=== PATIENT | male | born 1965 | race Caucasian/White ===

== ENCOUNTER 2024-07-29 18:43 | Inpatient (IN) ==
[2024-07-29 19:30] LABS: Basophils # (Auto) 0 K/mcL (0.00-0.30); Basophils % (Auto) 0 % (0.0-2.0); Eosinophils # (Auto) 0.03 K/mcL (0.00-0.70); Eosinophils % (Auto) 0.2 % (0.0-7.0); Hematocrit 34.4 % (40.1-51.0); Hemoglobin 12.3 g/dL (13.7-17.5); Lymphocytes % (Auto) 2.1 % (15.5-49.0); Mean Cell Volume 89.1 fL (80.0-100.0); Mean Corpuscular HGB Conc 35.8 g/dL (31.0-36.0); Mean Platelet Volume 8.4 fL (8.8-12.5); Monocytes # (Auto) 0.52 K/mcL (0.10-0.90); Monocytes % (Auto) 3.6 % (1.0-12.0); Neutrophils % (Auto) 93.2 % (38.0-78.0); Platelet Count 439 K/mcL (140-440); RBC 3.86 M/mcL (4.63-6.08); Red Cell Distribution Width 12.4 % (11.5-14.5); WBC 14.5 K/mcL (4.5-11.0)
[2024-07-29] MEDS: 0.9 % SODIUM CHLORIDE 1,000 ML IV ONE (19:30)
[2024-07-29 19:50] LABS: Creatine Kinase 240 U/L (24-195)
[2024-07-29] MEDS: POTASSIUM CHLORIDE 20 MEQ, MAGNESIUM SULFATE 16.24 MEQ, THIAMINE 100 MG, MVI, ADULT NO.... IV SCH (20:00)
[2024-07-29 20:07] LABS: ALT/SGPT 54 U/L (<40); AST/SGOT 88 U/L (<40); Albumin 3.6 gm/dL (3.2-5.2); Alkaline Phosphatase 124 U/L (39-117); Bilirubin,Total 0.7 mg/dL (0.1-1.0); Blood Urea Nitrogen 22 mg/dL (6-20); Calcium 9.1 mg/dL (8.6-10.4); Carbon Dioxide 16 mmol/L (22-30); Chloride 82 mmol/L (96-108); Globulin 3.5 gm/dL (2.2-3.7); Glomerular Filtration Rate 30; Glucose 230 mg/dL (70-105); Potassium 2.4 mmol/L (3.3-5.1); Sodium 123 mmol/L (133-145)
[2024-07-29] MEDS: MAGNESIUM SULFATE 8.12 MEQ/2 ML VIAL ONE (20:07)
[2024-07-29] MEDS: POTASSIUM CHLORIDE 20 MEQ/10 ML VIAL IV ONE (20:07)
[2024-07-29] MEDS: THIAMINE 100 MG/ML VIAL ONE (20:08)
[2024-07-29] MEDS: MVI, ADULT NO.4 WITH VIT K 10 ML VIAL IV ONE (20:19)
[2024-07-29] MEDS: DIPH,PERTUSS(ACELL),TET VAC/PF 0.5 ML SYRINGE IM ONE (20:22)
[2024-07-29] MEDS: POTASSIUM CHLORIDE 20 MEQ TABLET PO ONE (20:22)
[2024-07-29] MEDS: chlordiazePOXIDE 25 MG CAPSULE PO ONE (20:22)
[2024-07-29] MEDS: LORazepam 2 MG/ML VIAL IV ONE (20:22)
[2024-07-29] MEDS: POTASSIUM CHLORIDE 20 MEQ in DEXTROSE 5% IN WATER 250 ML IV ONE (23:08)
[2024-07-30 00:59] LABS: Alcohol, Blood < 10.1 mg/dL; Alcohol,Blood < 0.010 gm/dL (<0.010)
[2024-07-30 02:54] LABS: Blood Urea Nitrogen 18 mg/dL (6-20); Calcium 8.1 mg/dL (8.6-10.4); Carbon Dioxide 22 mmol/L (22-30); Chloride 94 mmol/L (96-108); Glomerular Filtration Rate 46; Glucose 121 mg/dL (70-105); Potassium 2.7 mmol/L (3.3-5.1); Sodium 128 mmol/L (133-145)
[2024-07-30 03:12] LABS: Amphetamine Screen,Urine None detected; Barbiturate Screen,Urine None detected; Benzodiazepines Screen,Urine None detected; Cannabinoid Screen,Urine None detected; Cocaine Screen,Urine None detected; Fentanyl, Urine Screen None Detected; Opiate Screen,Urine None detected; Oxycodone, Urine Screen None detected; Phencyclidine Screen,Urine None detected
[2024-07-30] MEDS: POTASSIUM CHLORIDE 20 MEQ TABLET PO ONE (04:12)
[2024-07-30] MEDS ORDERED: SENNOSIDES 1 TABLET PO PRN (08:17)
[2024-07-30] MEDS ORDERED: METOCLOPRAMIDE 10 MG/2 ML VIAL IV PRN (08:17)
[2024-07-30] MEDS ORDERED: IPRATROPIUM/ALBUTEROL 3 ML AMPUL.NEB NEB PRN (08:17)
[2024-07-30] MEDS ORDERED: POLYETHYLENE GLYCOL 3350 17 GM PACKET PO PRN (08:17)
[2024-07-30 09:27] LABS: Free T4 (Free Thyroxine) 1.47 ng/dL (0.93-1.70); Thyroid Stimulating Hormone 2.85 uIU/mL (0.27-5.01)
[2024-07-30] MEDS: DOCUSATE SODIUM 100 MG CAPSULE PO SCH (10:06)
[2024-07-30] MEDS: chlordiazePOXIDE 25 MG CAPSULE PO PRN (10:34)
[2024-07-30] MEDS: FOLIC ACID 1 MG TABLET PO SCH (10:34)
[2024-07-30] MEDS: ENOXAPARIN 40 MG/0.4 ML SYRINGE SQ SCH (10:35)
[2024-07-30] MEDS: THIAMINE 100 MG in 0.9 % SODIUM CHLORIDE 50 ML IV SCH (10:35)
[2024-07-30] MEDS: MULTIVIT,THER IRON,CA,FA & MIN 1 TABLET PO SCH (10:35)
[2024-07-30] MEDS: DEXTROSE 5%-NS 1,000 ML IV ONE (10:35)
[2024-07-30] MEDS: GABAPENTIN 300 MG CAPSULE PO ONE (15:51)
[2024-07-30] MEDS: 0.9 % SODIUM CHLORIDE 10 ML SYRINGE IV SCH (15:53)
[2024-07-30] MEDS: GABAPENTIN 300 MG CAPSULE PO SCH (22:23)
[2024-07-31 06:49] LABS: Basophils # (Auto) 0.02 K/mcL (0.00-0.30); Basophils % (Auto) 0.2 % (0.0-2.0); Eosinophils # (Auto) 0.03 K/mcL (0.00-0.70); Eosinophils % (Auto) 0.2 % (0.0-7.0); Hematocrit 29.2 % (40.1-51.0); Hemoglobin 10.5 g/dL (13.7-17.5); Lymphocytes # (Auto) 0.56 K/mcL (1.50-4.80); Lymphocytes % (Auto) 4.4 % (15.5-49.0); Mean Platelet Volume 8.6 fL (8.8-12.5); Monocytes # (Auto) 0.89 K/mcL (0.10-0.90); Neutrophils % (Auto) 87.6 % (38.0-78.0); Platelet Count 350 K/mcL (140-440); RBC 3.28 M/mcL (4.63-6.08); Red Cell Distribution Width 12.5 % (11.5-14.5); WBC 12.8 K/mcL (4.5-11.0)
[2024-07-31 07:14] LABS: ALT/SGPT 50 U/L (<40); AST/SGOT 157 U/L (<40); Albumin 2.9 gm/dL (3.2-5.2); Alkaline Phosphatase 98 U/L (39-117); Bilirubin,Direct 0.4 mg/dL (<0.3); Bilirubin,Total 0.7 mg/dL (0.1-1.0); Blood Urea Nitrogen 12 mg/dL (6-20); Carbon Dioxide 24 mmol/L (22-30); Chloride 94 mmol/L (96-108); Globulin 2.9 gm/dL (2.2-3.7); Glomerular Filtration Rate 73; Glucose 113 mg/dL (70-105); Lactate Dehydrogenase 164 U/L (135-225); Phosphorous 2.7 mg/dL (2.5-4.5); Potassium 2.2 mmol/L (3.3-5.1); Sodium 132 mmol/L (133-145); Triglycerides 54 mg/dL (<150); Uric Acid 6.1 mg/dL (2.5-8.0)
[2024-07-31] MEDS: POTASSIUM CHLORIDE 40 MEQ in DEXTROSE 5% IN WATER 500 ML IV PRN (09:09)
[2024-07-31] MEDS: POTASSIUM CHLORIDE 20 MEQ TABLET PO PRN (09:10)
[2024-07-31 12:02] LABS: Appearance,Urine Clear (Clear); Bilirubin,Urine Negative (Negative); Color,Urine Yellow; Glucose,Urine (UA) Negative (Negative); Ketones,Urine Negative (Negative); Leukocyte Esterase,Urine Negative /uL (Negative); Nitrate,Urine Negative (Negative); PH,Urine 5.5 (5.0-9.0); Protein,Urine Negative (Negative); Urine Blood Trace-lysed ery/mcL (Negative); Urine RBC 0 /hpf (0-3); Urine Squamous Epithelial Cell 0 /hpf (0-4); Urine WBC 0 /hpf (0-4); Urobilinogen,Urine Normal
[2024-07-31] MEDS: LEVOTHYROXINE 50 MCG TABLET PO SCH (13:03)
[2024-07-31 15:17] LABS: Potassium 2.7 mmol/L (3.3-5.1)
[2024-07-31] MEDS: POTASSIUM CHLORIDE 10 MEQ/100 ML BAG IV SCH (15:59)
[2024-07-31] MEDS: POTASSIUM CHLORIDE 40 MEQ in DEXTROSE 5% IN WATER 500 ML IV ONE (17:47)
[2024-07-31] MEDS ORDERED: morphine 4 MG/ML VIAL IV PRN (21:10)
[2024-08-01 07:09] LABS: Phosphorous 2.1 mg/dL (2.5-4.5)
[2024-08-01 07:11] LABS: Basophils # (Auto) 0.03 K/mcL (0.00-0.30); Basophils % (Auto) 0.4 % (0.0-2.0); Eosinophils # (Auto) 0.07 K/mcL (0.00-0.70); Hematocrit 29.6 % (40.1-51.0); Hemoglobin 10.2 g/dL (13.7-17.5); Lymphocytes # (Auto) 0.53 K/mcL (1.50-4.80); Lymphocytes % (Auto) 7.7 % (15.5-49.0); Mean Cell Volume 92.2 fL (80.0-100.0); Mean Corpuscular HGB Conc 34.5 g/dL (31.0-36.0); Mean Platelet Volume 8.5 fL (8.8-12.5); Monocytes # (Auto) 0.59 K/mcL (0.10-0.90); Monocytes % (Auto) 8.6 % (1.0-12.0); Neutrophils % (Auto) 81.9 % (38.0-78.0); Platelet Count 343 K/mcL (140-440); RBC 3.21 M/mcL (4.63-6.08); Red Cell Distribution Width 12.6 % (11.5-14.5); WBC 6.9 K/mcL (4.5-11.0)
[2024-08-01 07:55] LABS: ALT/SGPT 50 U/L (<40); AST/SGOT 131 U/L (<40); Albumin 2.8 gm/dL (3.2-5.2); Albumin/Globulin Ratio 0.9 (1.0-2.3); Alkaline Phosphatase 116 U/L (39-117); Bilirubin,Total 0.5 mg/dL (0.1-1.0); Blood Urea Nitrogen 12 mg/dL (6-20); Calcium 8.3 mg/dL (8.6-10.4); Carbon Dioxide 26 mmol/L (22-30); Chloride 94 mmol/L (96-108); Glomerular Filtration Rate 82; Glucose 91 mg/dL (70-105); Potassium 2.9 mmol/L (3.3-5.1); Sodium 129 mmol/L (133-145)
[2024-08-01] MEDS: POTASSIUM CHLORIDE 20 MEQ TABLET PO SCH (08:09)
[2024-08-01] MEDS: POTASSIUM PHOSPHATE 20 MEQ in DEXTROSE 5% IN WATER 250 ML IV ONE (11:44)
[2024-08-01] MEDS: SODIUM CHLORIDE 1 GM TABLET PO SCH (16:23)
[2024-08-01] MEDS: GABAPENTIN 300 MG CAPSULE PO SCH (16:23)
[2024-08-02 07:19] LABS: Phosphorous 2.7 mg/dL (2.5-4.5)
[2024-08-02 07:43] LABS: ALT/SGPT 58 U/L (<40); AST/SGOT 137 U/L (<40); Albumin 2.6 gm/dL (3.2-5.2); Albumin/Globulin Ratio 0.9 (1.0-2.3); Alkaline Phosphatase 157 U/L (39-117); Bilirubin,Total 0.4 mg/dL (0.1-1.0); Blood Urea Nitrogen 9 mg/dL (6-20); Carbon Dioxide 23 mmol/L (22-30); Chloride 95 mmol/L (96-108); Globulin 2.9 gm/dL (2.2-3.7); Glomerular Filtration Rate 93; Glucose 96 mg/dL (70-105); Potassium 3.6 mmol/L (3.3-5.1); Sodium 129 mmol/L (133-145)
[2024-08-02] MEDS: PANTOPRAZOLE 40 MG PACKET PO SCH (08:28)
[2024-08-02] MEDS: MAGNESIUM SULFATE 2 GM/50 ML BAG IV PRN (08:28)
[2024-08-02] MEDS: MAGNESIUM SULFATE 8.12 MEQ/2 ML VIAL IV ONE (10:55)
[2024-08-02] MEDS ORDERED: MAGNESIUM SULFATE 1 GM/100 ML BAG IV SCH (11:00)
[2024-08-03 06:53] LABS: Phosphorous 2.9 mg/dL (2.5-4.5)
[2024-08-03 06:56] LABS: ALT/SGPT 61 U/L (<40); AST/SGOT 115 U/L (<40); Albumin 2.9 gm/dL (3.2-5.2); Albumin/Globulin Ratio 0.9 (1.0-2.3); Alkaline Phosphatase 154 U/L (39-117); Bilirubin,Total 0.4 mg/dL (0.1-1.0); Blood Urea Nitrogen 7 mg/dL (6-20); Calcium 8.4 mg/dL (8.6-10.4); Carbon Dioxide 23 mmol/L (22-30); Chloride 98 mmol/L (96-108); Globulin 3.2 gm/dL (2.2-3.7); Glomerular Filtration Rate 93; Glucose 91 mg/dL (70-105); Potassium 4.4 mmol/L (3.3-5.1); Sodium 130 mmol/L (133-145)
[2024-08-03] MEDS: ONDANSETRON 4 MG/2 ML VIAL IV PRN (09:38)
[2024-08-03] MEDS: DIAZEPAM 10 MG/2 ML SYRINGE IV PRN (09:45)
[2024-08-03] MEDS: MAGNESIUM OXIDE 400 MG TABLET PO SCH (10:19)
[2024-08-03] MEDS: LOSARTAN 50 MG TABLET PO SCH (11:29)
[2024-08-03] MEDS: DEXMEDETOMIDINE 400 MCG in PREMIX 1 BAG IV SCH (11:51)
[2024-08-03] MEDS: 0.9 % SODIUM CHLORIDE 250 ML IV SCH (11:52)
[2024-08-03] MEDS: amLODIPine 10 MG TABLET PO SCH (11:54)
[2024-08-03] MEDS: DEXTROSE 5%-1/2NS 1,000 ML IV SCH (11:54)
[2024-08-03] MEDS: DEXMEDETOMIDINE 100 ML IV ONE (11:55)
[2024-08-03] MEDS ORDERED: METOCLOPRAMIDE 10 MG/2 ML VIAL IV SCH (15:15)
[2024-08-03] MEDS: POTASSIUM CHLORIDE 20 MEQ/15 ML ML PO SCH (16:49)
[2024-08-03] MEDS ORDERED: SIMETHICONE 80 MG TAB.CHEW CHEWED SCH (18:00)
[2024-08-03] MEDS: PYRIDOSTIGMINE BROMIDE 10 MG/2 ML AMPUL IV SCH (18:12)
[2024-08-03] MEDS: DIAZEPAM 10 MG/2 ML SYRINGE IV ONE (19:32)
[2024-08-03] MEDS: DIAZEPAM 10 MG/2 ML SYRINGE ONE (20:04)
[2024-08-03] MEDS: cefTRIAXone 1 GM VIAL IV SCH (21:09)
[2024-08-03] MEDS: AZITHROMYCIN 500 MG in 0.9 % SODIUM CHLORIDE 250 ML IV SCH (22:20)
[2024-08-04 07:13] LABS: Phosphorous 3.9 mg/dL (2.5-4.5)
[2024-08-04 07:15] LABS: ALT/SGPT 44 U/L (<40); AST/SGOT 72 U/L (<40); Albumin 2.7 gm/dL (3.2-5.2); Albumin/Globulin Ratio 0.9 (1.0-2.3); Alkaline Phosphatase 147 U/L (39-117); Bilirubin,Total 0.5 mg/dL (0.1-1.0); Blood Urea Nitrogen 9 mg/dL (6-20); Carbon Dioxide 23 mmol/L (22-30); Chloride 99 mmol/L (96-108); Globulin 2.9 gm/dL (2.2-3.7); Glomerular Filtration Rate 97; Glucose 143 mg/dL (70-105); Potassium 4.1 mmol/L (3.3-5.1); Sodium 131 mmol/L (133-145)
[2024-08-04] MEDS: DEXMEDETOMIDINE 100 ML IV ONE (09:54)
[2024-08-05] MEDS: DIAZEPAM 10 MG/2 ML SYRINGE IV PRN (10:04)
[2024-08-05 12:14] LABS: Phosphorous 3.1 mg/dL (2.5-4.5)
[2024-08-05 12:15] LABS: ALT/SGPT 44 U/L (<40); AST/SGOT 66 U/L (<40); Albumin 2.9 gm/dL (3.2-5.2); Alkaline Phosphatase 105 U/L (39-117); Bilirubin,Total 0.3 mg/dL (0.1-1.0); Blood Urea Nitrogen 5 mg/dL (6-20); Carbon Dioxide 22 mmol/L (22-30); Chloride 102 mmol/L (96-108); Globulin 2.9 gm/dL (2.2-3.7); Glomerular Filtration Rate 97; Glucose 97 mg/dL (70-105); Potassium 3.6 mmol/L (3.3-5.1); Sodium 135 mmol/L (133-145)
[2024-08-05] MEDS: chlordiazePOXIDE 5 MG CAPSULE PO PRN (14:41)
[2024-08-06 07:32] LABS: Phosphorous 3.9 mg/dL (2.5-4.5)
[2024-08-06 07:33] LABS: ALT/SGPT 47 U/L (<40); AST/SGOT 78 U/L (<40); Albumin/Globulin Ratio 0.9 (1.0-2.3); Alkaline Phosphatase 111 U/L (39-117); Bilirubin,Total 0.4 mg/dL (0.1-1.0); Blood Urea Nitrogen 4 mg/dL (6-20); Calcium 8.3 mg/dL (8.6-10.4); Carbon Dioxide 21 mmol/L (22-30); Chloride 101 mmol/L (96-108); Globulin 3.2 gm/dL (2.2-3.7); Glomerular Filtration Rate 97; Glucose 84 mg/dL (70-105); Potassium 4.3 mmol/L (3.3-5.1); Sodium 133 mmol/L (133-145)
[2024-08-06] MEDS: ACETAMINOPHEN 325 MG TABLET PO PRN (13:33)
[2024-08-06] MEDS: oxyCODONE IR 5 MG TABLET PO PRN (16:47)
[2024-08-07 05:53] LABS: ALT/SGPT 251 U/L (<40); AST/SGOT 324 U/L (<40); Albumin 3.4 gm/dL (3.2-5.2); Albumin/Globulin Ratio 1.6 (1.0-2.3); Alkaline Phosphatase 71 U/L (39-117); Bilirubin,Direct 0.3 mg/dL (<0.3); Bilirubin,Total 0.5 mg/dL (0.1-1.0); Blood Urea Nitrogen 12 mg/dL (6-20); Calcium 8.2 mg/dL (8.6-10.4); Carbon Dioxide 28 mmol/L (22-30); Chloride 100 mmol/L (96-108); Globulin 2.1 gm/dL (2.2-3.7); Glomerular Filtration Rate 103; Glucose 159 mg/dL (70-105); Lactate Dehydrogenase 455 U/L (135-225); Phosphorous 2.4 mg/dL (2.5-4.5); Potassium 3.4 mmol/L (3.3-5.1); Sodium 137 mmol/L (133-145); Triglycerides 63 mg/dL (<150); Uric Acid 2.6 mg/dL (2.5-8.0)
[2024-08-07 06:10] LABS: Basophils # (Auto) 0.02 K/mcL (0.00-0.30); Basophils % (Auto) 0.3 % (0.0-2.0); Eosinophils # (Auto) 0.11 K/mcL (0.00-0.70); Eosinophils % (Auto) 1.8 % (0.0-7.0); Hematocrit 28.4 % (40.1-51.0); Hemoglobin 9.4 g/dL (13.7-17.5); Lymphocytes # (Auto) 0.72 K/mcL (1.50-4.80); Lymphocytes % (Auto) 11.8 % (15.5-49.0); Mean Cell Volume 95.9 fL (80.0-100.0); Mean Corpuscular HGB Conc 33.1 g/dL (31.0-36.0); Mean Platelet Volume 8.2 fL (8.8-12.5); Monocytes % (Auto) 8.2 % (1.0-12.0); Neutrophils % (Auto) 76.6 % (38.0-78.0); Platelet Count 398 K/mcL (140-440); RBC 2.96 M/mcL (4.63-6.08); Red Cell Distribution Width 13.5 % (11.5-14.5); WBC 6.1 K/mcL (4.5-11.0)
[2024-08-07] MEDS: POTASSIUM CHLORIDE 20 MEQ TABLET PO PRN (18:53)
[2024-08-08 08:19] LABS: ALT/SGPT 38 U/L (<40); AST/SGOT 48 U/L (<40); Albumin 2.8 gm/dL (3.2-5.2); Alkaline Phosphatase 103 U/L (39-117); Bilirubin,Direct 0.2 mg/dL (<0.3); Bilirubin,Total 0.4 mg/dL (0.1-1.0); Blood Urea Nitrogen 5 mg/dL (6-20); Carbon Dioxide 21 mmol/L (22-30); Chloride 102 mmol/L (96-108); Globulin 2.7 gm/dL (2.2-3.7); Glomerular Filtration Rate 97; Glucose 101 mg/dL (70-105); Lactate Dehydrogenase 148 U/L (135-225); Phosphorous 3.5 mg/dL (2.5-4.5); Potassium 3.6 mmol/L (3.3-5.1); Sodium 133 mmol/L (133-145); Triglycerides 54 mg/dL (<150); Uric Acid 2.2 mg/dL (2.5-8.0)
[2024-08-08] MEDS: SODIUM CHLORIDE 1 GM TABLET PO SCH (09:01)
[2024-08-08] MEDS: GABAPENTIN 300 MG CAPSULE PO SCH (09:01)
[2024-08-08] MEDS: THIAMINE 100 MG TABLET PO SCH (09:02)
[2024-08-08] MEDS: ALBUMIN HUMAN 12.5 GM/50 ML VIAL IV ONE (09:49)
[2024-08-08 10:17] LABS: Mean Cell Volume 97.5 fL (80.0-100.0); Mean Corpuscular HGB Conc 32.3 g/dL (31.0-36.0); Mean Platelet Volume 8.5 fL (8.8-12.5); Platelet Count 418 K/mcL (140-440); RBC 3.18 M/mcL (4.63-6.08); Red Cell Distribution Width 13.5 % (11.5-14.5); WBC 8.8 K/mcL (4.5-11.0)
[2024-08-08] MEDS: FUROSEMIDE 40 MG/4 ML VIAL IV ONE (10:44)
[2024-08-08 11:05] LABS: Band Neutrophils % 3 % (0-10); Lymphocytes % 12 % (15-49); Monocytes % (Manual) 4 % (1-12); Platelet Estimate NORMAL (Normal); RBC Morphology NORMAL (Normal); Reactive Lymphocytes 1 % (0-2); Segmented Neutrophils % 80 % (38-78)
[2024-08-08] MEDS: SUCRALFATE 1 GM/10 ML ORAL.SUSP PO ONE (12:14)
[2024-08-08] MEDS: METOPROLOL TARTRATE 50 MG TABLET PO SCH (15:08)
[2024-08-08] MEDS ORDERED: SIMETHICONE 80 MG TAB.CHEW CHEWED SCH (18:00)
[2024-08-08] MEDS: SIMETHICONE 80 MG TAB.CHEW CHEWED ONE (18:40)
[2024-08-08] MEDS: PANTOPRAZOLE 40 MG PACKET PO SCH (20:54)
[2024-08-09 05:43] LABS: Hematocrit 34.3 % (40.1-51.0); Hemoglobin 11.3 g/dL (13.7-17.5); Mean Corpuscular HGB Conc 32.9 g/dL (31.0-36.0); Mean Platelet Volume 8.5 fL (8.8-12.5); Platelet Count 413 K/mcL (140-440); RBC 3.65 M/mcL (4.63-6.08); Red Cell Distribution Width 13.4 % (11.5-14.5); WBC 12.4 K/mcL (4.5-11.0)
[2024-08-09 06:07] LABS: ALT/SGPT 38 U/L (<40); AST/SGOT 47 U/L (<40); Albumin/Globulin Ratio 0.9 (1.0-2.3); Alkaline Phosphatase 122 U/L (39-117); Bilirubin,Direct 0.3 mg/dL (<0.3); Bilirubin,Total 0.6 mg/dL (0.1-1.0); Blood Urea Nitrogen 5 mg/dL (6-20); Calcium 8.3 mg/dL (8.6-10.4); Carbon Dioxide 21 mmol/L (22-30); Chloride 98 mmol/L (96-108); Globulin 3.4 gm/dL (2.2-3.7); Glomerular Filtration Rate 93; Glucose 117 mg/dL (70-105); Lactate Dehydrogenase 174 U/L (135-225); Phosphorous 2.9 mg/dL (2.5-4.5); Potassium 3.4 mmol/L (3.3-5.1); Sodium 131 mmol/L (133-145); Triglycerides 64 mg/dL (<150); Uric Acid 2.4 mg/dL (2.5-8.0)
[2024-08-09 06:43] LABS: Eosinophils % (Manual) 2 % (0-7); Lymphocytes % 6 % (15-49); Monocytes % (Manual) 3 % (1-12); Platelet Estimate NORMAL (Normal); RBC Morphology NORMAL (Normal); Reactive Lymphocytes 2 % (0-2); Segmented Neutrophils % 87 % (38-78)
[2024-08-09 09:52] LABS: Appearance,Urine Clear (Clear); Bilirubin,Urine Negative (Negative); Color,Urine Yellow; Glucose,Urine (UA) Negative (Negative); Ketones,Urine Negative (Negative); Leukocyte Esterase,Urine Negative /uL (Negative); Nitrate,Urine Negative (Negative); PH,Urine 6.5 (5.0-9.0); Protein,Urine Negative (Negative); Specific Gravity,Urine <= 1.005 (1.000-1.035); Urine Blood Trace-intact ery/mcL (Negative); Urine RBC 0 /hpf (0-3); Urine Squamous Epithelial Cell 0 /hpf (0-4); Urine WBC 0 /hpf (0-4); Urobilinogen,Urine Normal
[2024-08-09] MEDS: PIPERACILLIN SODIUM/TAZOBACTAM 3.375 GM in DEXTROSE 5% IN WATER 50 ML IV ONE (11:20)
[2024-08-09] MEDS ORDERED: DIATRIZOATE MEGLU/DIATRIZO SOD 30 ML BOTTLE PO ONE (14:56)
[2024-08-09] MEDS ORDERED: IOPAMIDOL 100 ML BOTTLE IV ONE (14:56)
[2024-08-09] MEDS: PIPERACILLIN SODIUM/TAZOBACTAM 3.375 GM in DEXTROSE 5% IN WATER 100 ML IV SCH (15:20)
[2024-08-10 06:30] LABS: Hematocrit 27.9 % (40.1-51.0); Hemoglobin 9.4 g/dL (13.7-17.5); Mean Cell Volume 93.6 fL (80.0-100.0); Mean Corpuscular HGB Conc 33.7 g/dL (31.0-36.0); Mean Platelet Volume 8.5 fL (8.8-12.5); Platelet Count 415 K/mcL (140-440); RBC 2.98 M/mcL (4.63-6.08); Red Cell Distribution Width 13.3 % (11.5-14.5); WBC 9.2 K/mcL (4.5-11.0)
[2024-08-10 06:54] LABS: ALT/SGPT 30 U/L (<40); AST/SGOT 35 U/L (<40); Albumin 2.7 gm/dL (3.2-5.2); Albumin/Globulin Ratio 0.9 (1.0-2.3); Alkaline Phosphatase 102 U/L (39-117); Bilirubin,Direct 0.4 mg/dL (<0.3); Bilirubin,Total 0.6 mg/dL (0.1-1.0); Blood Urea Nitrogen 6 mg/dL (6-20); Calcium 8.2 mg/dL (8.6-10.4); Carbon Dioxide 19 mmol/L (22-30); Chloride 102 mmol/L (96-108); Globulin 3.1 gm/dL (2.2-3.7); Glomerular Filtration Rate 97; Glucose 88 mg/dL (70-105); Lactate Dehydrogenase 148 U/L (135-225); Phosphorous 3.6 mg/dL (2.5-4.5); Potassium 3.6 mmol/L (3.3-5.1); Sodium 130 mmol/L (133-145); Triglycerides 56 mg/dL (<150); Uric Acid 1.7 mg/dL (2.5-8.0)
[2024-08-10 07:40] LABS: Eosinophils % (Manual) 3 % (0-7); Lymphocytes % 12 % (15-49); Monocytes % (Manual) 5 % (1-12); Platelet Estimate NORMAL (Normal); RBC Morphology NORMAL (Normal); Reactive Lymphocytes 1 % (0-2); Segmented Neutrophils % 78 % (38-78)
[2024-08-11 06:20] LABS: ALT/SGPT 31 U/L (<40); AST/SGOT 42 U/L (<40); Albumin 2.7 gm/dL (3.2-5.2); Albumin/Globulin Ratio 0.8 (1.0-2.3); Alkaline Phosphatase 112 U/L (39-117); Bilirubin,Direct 0.3 mg/dL (<0.3); Bilirubin,Total 0.4 mg/dL (0.1-1.0); Blood Urea Nitrogen 5 mg/dL (6-20); Calcium 8.4 mg/dL (8.6-10.4); Carbon Dioxide 20 mmol/L (22-30); Chloride 104 mmol/L (96-108); Globulin 3.4 gm/dL (2.2-3.7); Glomerular Filtration Rate 93; Glucose 86 mg/dL (70-105); Lactate Dehydrogenase 162 U/L (135-225); Phosphorous 3.8 mg/dL (2.5-4.5); Potassium 3.6 mmol/L (3.3-5.1); Sodium 136 mmol/L (133-145); Triglycerides 67 mg/dL (<150); Uric Acid 1.7 mg/dL (2.5-8.0)
[2024-08-11 08:24] VITALS: O2SAT 100
[2024-08-11 12:31] VITALS: TEMP 98.4
== END 2024-08-11 13:11 | disposition home or self-care (01) | DRG 640 ==
LOC: ED 18:43 → ICU 07-30 08:40
PROVIDERS: ADMIT Internal Medicine; ATTEND Internal Medicine